=== PATIENT | female | born 1955 | race Caucasian/White ===

== ENCOUNTER 2023-07-06 16:07 | Emergency (ER) | payer MEDICARE, OTHER, SELFPAY ==
[2023-07-06 16:11] VITALS: BP 155/97; BMI 18.3
[2023-07-06 16:21] LABS: % Basophils 0.2 % (0-2); % Eosinophils 1.1 % (0-6); % Immature Granulocytes 0.3 % (0-0.5); % Lymphocytes 19.8 % (20.5-51.1); % Monocytes 9.3 % (1.7-9.3); % Neutrophils 69.3 % (42.2-75.2); Absolute Eosinophils 0.1 10^3/uL (0-0.7); Absolute Lymphocytes 1.3 10^3/uL (1.2-3.4); Absolute Monocytes 0.6 10^3/uL (0.1-0.6); Absolute Neutrophils 4.4 10^3/uL (1.4-6.5); Hematocrit 36.6 % (37.0-47.0); Hemoglobin 12.7 g/dL (12.0-16.0); Mean Corp Hgb Conc. 34.7 g/dL (33.0-37.0); Mean Corpuscular Hgb 29.1 pg (27.0-31.0); Mean Corpuscular Volume 83.8 fL (81.0-99.0); Mean Platelet Volume 8.4 fL (7.4-10.4); Nucleated Red Blood Cells % 0 %; Platelet Count 366 10^3/uL (130-400); Red Blood Cell Count 4.37 10^6/uL (4.20-5.40); White Blood Cell Count 6.4 10^3/uL (4.8-10.8)
[2023-07-06 16:43] LABS: ALT (SGPT) 20 U/L (0-35); AST (SGOT) 28 U/L (14-36); Albumin 4.5 g/dl (3.5-5.0); Alkaline Phosphatase 74 U/L (38-126); Blood Urea Nitrogen 10 mg/dl (7-17); Calcium 9.4 mg/dl (8.4-10.2); Carbon Dioxide 26 mmol/L (22-30); Chloride 95 mmol/L (98-107); Estimated Creatinine Clearance 68 ml/min; Glucose 104 mg/dl (70-99); Lipase 51 U/L (23-300); Potassium 4.2 mmol/L (3.5-5.1); Sodium 127 mmol/L (135-145); Total Bilirubin 0.3 mg/dl (0.2-1.3); Total Protein 7.3 g/dl (6.3-8.2); eGFR > 60.00
--- NOTE | 2023-07-06 17:24 | ED.GENMED ---
History of Present Illness
General
Chief Complaint: Abdominal Pain
Source: patient
Time Seen by Provider: 07/06/23 16:49
Travel History
Have you had any contact with someone who has COVID-19?: No
Do you have any symptoms of coronavirus? Fever > 100 degrees, chills, cough, shortness of breath, sore throat, loss of taste or smell, muscle aches, or headache?: No
History of Present Illness
History of Present Illness:
67-year-old female history of migraines, Tourette's presenting with diffuse abdominal pain starting 4 hours prior to arrival. Patient denies nausea, vomiting, diarrhea, back pain, or urinary symptoms. Patient states is never happened before.
Patient states his symptoms have resolved since onset and denies any current abdominal pain. Patient states that she had a normal bowel movement this morning and has passed gas since onset of pain. No history of any abdominal surgeries.
Past History
Past History
ED Past Medical History: Hypercholesterolemia, Psychiatric and Other (Migraine, Tourette's, dystonia, chronic pain)
Social History
Tobacco: Former smoker
Alcohol: None
Personal:
Phy Exam
Physical Exam
Physical Exam:
General: Alert, no acute distress, well appearing
Head: NCAT
Eyes: clear conjunctiva
Neck: supple
Cardiac: regular rate and rhythm, no murmur
Lungs: clear to auscultation bilaterally. No wheezes, rales, or rhonchi. Speaking full unlabored sentences. No respiratory distress.
Abdomen: soft, nondistended nontender. No rebound or guarding. No CVA tenderness bilaterally
MSK: no lower extremity edema bilaterally. No deformity
Skin: warm, dry
Neuro: Alert and oriented x3. no focal deficits
Course
Orders/Labs/Results
Orders:
Orders
07/06/23 16:15
Complete Blood Count/With Diff Urgent
Comprehensive Metabolic Panel Urgent
Lipase Urgent
Abnormal Lab Results
07/06/23
16:15
Hct 36.6 L %
(37.0-47.0)
Lymphocytes % 19.8 L %
(20.5-51.1)
Sodium 127 L mmol/L
(135-145)
Chloride 95 L mmol/L
(98-107)
Glucose 104 H mg/dl
(70-99)
07/06/23 16:15
07/06/23 16:15
Vital Signs
Initial and Last Documented VS:
Initial Vital Signs
Temp Pulse Resp BP Pulse Ox
98.1 F 78 18 155/97 97
07/06/23 16:11 07/06/23 16:11 07/06/23 16:11 07/06/23 16:11 07/06/23 16:11
Last Documented Vital Signs
Temp Pulse Resp BP Pulse Ox
98.1 F 78 18 155/97 97
07/06/23 16:11 07/06/23 16:11 07/06/23 16:11 07/06/23 16:11 07/06/23 16:11
Comment
Comment:
Patient presents to the Emergency Department with ____diffuse abdominal pain
Number and Complexity of Problems Addressed at the Encounter
� Chronic conditions affecting care:
� Acute Exacerbation and/or Progression of Chronic Illness:
� Differential Diagnosis includes: Gas, pancreatitis, IBS, GERD
Amount and/or Complexity of Data to be Reviewed and Analyzed
� I performed an independent evaluation of and my interpretation is:
EKG:
CT:
Xrays:
Laboratory Studies: Sodium 127 (chronic hyponatremia 126-130), LFTs/electrolytes/lipase within normal notes. WBC 6.4 with no left shift.
Other:
� Review of other/old records reveals:
� Clinical information was obtained by an independent historian:
� Prescriptions/Medications Considered but not given:
� Further testing considered but not performed: CT abdomen pelvis considered, but given resolution of symptoms with benign exam, decided against obtaining
Risk of Complications and/or Morbidity or Mortality of Patient Management
� Social Determinants of health affecting care:
� Discussion with other providers (PCP, Hospitalists, Consultants, etc):
� Escalation of care including admission/observation vs risk of discharge considered: 67-year-old female presenting with diffuse abdominal pain for the past 4 hours which is since resolved. Benign exam. Vitals within normal limits. Labs within
normal limits. Given no tenderness and no pain at current time, no indication for further imaging. Will discharge with PCP follow-up
*Critical Care Note
Total Time (30-74mins, 75-104mins- exclusive of procedures): Not Applicable
ED Attending Note
-
Portions of this chart may have been created with voice recognition software.� Occasional wrong word or��sound alike� substitutions may have occurred due to the inherent limitations of voice recognition software.
Discharge Plan
Departure
Patient Disposition: Home (Routine Discharge)
Date of Disposition: 07/06/23
Time of Disposition: 17:27
Patient with high blood pressure during this ER visit?: Yes
Discharge Problem:
Abdominal pain
Instructions: Abdominal Pain
Prescriptions:
No Action
clonazepam 0.5 MG tablet
0.5 mg PO BID
omeprazole 20 MG capsule,delayed release(DR/EC)
20 mg PO BID
atorvastatin 10 MG tablet
10 mg PO DAILY
docusate sodium 50 MG capsule
50 mg PO HS
Referrals:
Justen Emanuel DO [Family Provider] -
Activity Restrictions/Additional Instructions:
Follow-up with primary care doctor in 1 to 2 days.
If symptoms return, try Gas-X
Return to the emergency department for nausea, vomiting, diarrhea, urinary symptoms or new/persistent
Interventions
Interventions:
*Risk Screen - Suicide Last Done: 07/06/23 16:11
*General Assessment Last Done: 07/06/23 17:35
*Neglect/Abuse Screening Last Done: 07/06/23 16:11
ED- Fall Risk Assessment Last Done: 07/06/23 17:35
*ED COVID-19 Vaccine History Last Done: 07/06/23 16:11
*Nursing Disposition Last Done: 07/06/23 17:35
AZ-Rzbdam-Xsnwilnher Assessment Last Done: 07/06/23 17:10
Discharge Date and Time
Discharge Date/Time: 07/06/23 17:36
Print Language: MACANESE
== END 2023-07-06 17:36 | disposition home or self-care (01) ==
LOC: EMR 16:07
PROVIDERS: Emergency Medicine; EMERGENCY PHYSICIAN Emergency Medicine; FAMILY PHYSICIAN Family Medicine
DX: R10.84 Generalized abdominal pain (principal); E78.00 Pure hypercholesterolemia, unspecified; F95.2 Tourette's disorder; G89.29 Other chronic pain; Z87.891 Personal history of nicotine dependence
CPT/HCPCS: 99283; 80053; 83690; 85025

== ENCOUNTER 2023-09-04 15:03 | Emergency (ER) | payer MEDICARE, OTHER, SELFPAY ==
[2023-09-04 15:08] VITALS: BP 133/89; BMI 18.3
--- NOTE | 2023-09-04 16:14 | ED.GENMED ---
History of Present Illness
General
Chief Complaint: Extremity Pain (non-traumatic)
Source: patient
Exam Limitations: none
Time Seen by Provider: 09/04/23 15:28
Nursing documentation reviewed up to this point in time: agreed with
Travel History
Have you had any contact with someone who has COVID-19?: No
Do you have any symptoms of coronavirus? Fever > 100 degrees, chills, cough, shortness of breath, sore throat, loss of taste or smell, muscle aches, or headache?: No
History of Present Illness
History of Present Illness:
67 y/o F with h/o HLD, anemia, tourettes syndrome
here with left foot, ankle and kne pain after she dropped a board on her foot when she was wearing slides on her feet
she was at a store and the boards were stacked up and one fell on her foot
she has pain and a little swelling to top of her hfoot
she has iced off and on
she also has a little pain in her ankle and knee
she has been able to weight bear
Past History
Past History
ED Past Medical History: Hypercholesterolemia, Psychiatric and Other (Migraine, Tourette's, dystonia, chronic pain)
Social History
Tobacco: Former smoker
Alcohol: None
Personal:
Review of Systems
Review of Systems
Allergies reviewed?: Yes
All Other Systems: Not applicable
Phy Exam
Physical Exam
Physical Exam:
GENERAL: Alert , in no apparent distress
HEAD: NCAT
pt has some dyskinesia movements
NEUROLOGICAL: Alert and oriented, no focal neuro deficits, CN intact, 5/5 strength, sensation intact
SKIN: Warm and dry, very subtle bruising to top of left foot
minimal if any STS midfoot dorsum
minial tenderness to food
MUSCULOSKELETAL: foot miinimally tender as above
no ankle tendenress
full rom
ambulatory with subtle limp
knee full ROM, no bruising, no edema/swelling, nontender
PSYCH: Normal and appropriate interaction.
Course
Orders/Labs/Results
Orders:
Orders
09/04/23 15:11
Ankle, left 3 view CR [CR Ankle - Left Min 3 Views ] Urgent
Comment:
Reason For Exam: pain
CR Foot - Left Min 3 Views Urgent
Comment:
Reason For Exam: pain
CR Knee - Left 4 Or More View* Urgent
Comment:
Reason For Exam: pain
Vital Signs
Initial and Last Documented VS:
Initial Vital Signs
Temp Pulse Resp BP Pulse Ox
99.1 F 78 16 133/89 99
09/04/23 15:08 09/04/23 15:08 09/04/23 15:08 09/04/23 15:08 09/04/23 15:08
Last Documented Vital Signs
Temp Pulse Resp BP Pulse Ox
99.1 F 82 18 126/66 97
09/04/23 15:08 09/04/23 16:45 09/04/23 16:45 09/04/23 16:45 09/04/23 16:45
MDM/Problems Addressed
Differential Diagnosis Includes:
contusion, fracture
MDM/Problems Addressed:
67-year-old female with left foot pain and left knee pain after a wooden board fell on her foot yesterday at a store. She is able to weight-bear. There is minimal skin bruising and very minimal swelling if any, the x-ray was independently reviewed
by me and negative for fracture. Patient is able to weight-bear. Her knee is also having some pain however this was not injured during this episode yesterday. She does have some chronic knee pain. Patient has no knee effusion and full range of
motion and negative x-rays. RICE, Tylenol
*Critical Care Note
Total Time (30-74mins, 75-104mins- exclusive of procedures): Not Applicable
ED Attending Note
-
Portions of this chart may have been created with voice recognition software.� Occasional wrong word or��sound alike� substitutions may have occurred due to the inherent limitations of voice recognition software.
Discharge Plan
Departure
Patient Disposition: Home (Routine Discharge)
Date of Disposition: 09/04/23
Time of Disposition: 16:44
Patient with high blood pressure during this ER visit?: No
Condition: Fair
Covid-19: Not Applicable
Discharge Problem:
Contusion of foot, left
Instructions: Minor Contusion ED
Prescriptions:
No Action
clonazepam 0.5 MG tablet
0.5 mg PO BID
omeprazole 20 MG capsule,delayed release(DR/EC)
20 mg PO BID
atorvastatin 10 MG tablet
10 mg PO DAILY
docusate sodium 50 MG capsule
50 mg PO HS
Referrals:
Justen Emanuel, DO [Family Provider] -
Activity Restrictions/Additional Instructions:
you can use the Wilfrido wrap during the day, take it off at night as needed for your foot. There is no signs of fractures on your x-rays. Ice off-and-on, take Tylenol as needed for pain. Follow-up with the orthopedist if you are continuing to have
pain in the next week or so.
Interventions
Interventions:
*Risk Screen - Suicide Last Done: 09/04/23 15:08
*General Assessment Last Done: 09/04/23 16:45
*Neglect/Abuse Screening Last Done: 09/04/23 15:08
ED- Fall Risk Assessment Last Done: 09/04/23 15:08
*ED COVID-19 Vaccine History Last Done: 09/04/23 16:45
*Nursing Disposition Last Done: 09/04/23 16:45
ED-Skin Assessment Last Done: 09/04/23 16:45
ED-Peripheral Vascular Assessment Last Done: 09/04/23 16:45
ED-Musculoskeletal Assessment Last Done: 09/04/23 16:45
Discharge Date and Time
Discharge Date/Time: 09/04/23 16:45
Print Language: THAI
[2023-09-04 16:45] VITALS: BP 126/66
== END 2023-09-04 16:45 | disposition home or self-care (01) ==
LOC: EMR 15:03
PROVIDERS: EMERGENCY PHYSICIAN Emergency Medicine; FAMILY PHYSICIAN Family Medicine
DX: S90.32XA Contusion of left foot, initial encounter (principal); W22.8XXA Striking against or struck by other objects, initial encounter; E78.00 Pure hypercholesterolemia, unspecified; D64.9 Anemia, unspecified; F95.2 Tourette's disorder; G89.29 Other chronic pain; Z87.891 Personal history of nicotine dependence
CPT/HCPCS: 99283; 73564; 73610; 73630

== ENCOUNTER → 2024-02-23 09:35 | Outpatient (REF) | payer MEDICARE, OTHER, SELFPAY ==
[2024-02-23 10:27] LABS: % Basophils 0.4 % (0-2); % Eosinophils 2.6 % (0-6); % Immature Granulocytes 0.2 % (0-0.5); % Lymphocytes 30.4 % (20.5-51.1); % Monocytes 10.7 % (1.7-9.3); % Neutrophils 55.7 % (42.2-75.2); Absolute Eosinophils 0.1 10^3/uL (0-0.7); Absolute Lymphocytes 1.4 10^3/uL (1.2-3.4); Absolute Monocytes 0.5 10^3/uL (0.1-0.6); Absolute Neutrophils 2.5 10^3/uL (1.4-6.5); Hematocrit 40.4 % (37.0-47.0); Hemoglobin 13.5 g/dL (12.0-16.0); Mean Corp Hgb Conc. 33.4 g/dL (33.0-37.0); Mean Corpuscular Hgb 29.3 pg (27.0-31.0); Mean Corpuscular Volume 87.6 fL (81.0-99.0); Mean Platelet Volume 8.9 fL (7.4-10.4); Nucleated Red Blood Cells % 0 %; Platelet Count 443 10^3/uL (130-400); Red Blood Cell Count 4.61 10^6/uL (4.20-5.40); Red Cell Dist. Width 13.3 % (11.5-14.5); White Blood Cell Count 4.6 10^3/uL (4.8-10.8)
[2024-02-23 10:37] LABS: ALT (SGPT) 22 U/L (0-35); AST (SGOT) 29 U/L (14-36); Albumin 4.7 g/dl (3.5-5.0); Alkaline Phosphatase 71 U/L (38-126); Blood Urea Nitrogen 13 mg/dl (7-17); Calcium 9.5 mg/dl (8.4-10.2); Carbon Dioxide 29 mmol/L (22-30); Chloride 96 mmol/L (98-107); Glucose 83 mg/dl (70-99); HDL Cholesterol 104 mg/dl; LDL Cholesterol, Calculated 174 mg/dl; Potassium 4.7 mmol/L (3.5-5.1); Sodium 137 mmol/L (135-145); Total Bilirubin 0.5 mg/dl (0.2-1.3); Total Cholesterol 292 mg/dl (50-199); Total Protein 7.5 g/dl (6.3-8.2); Triglyceride 70 mg/dl (10-149); Very Low Density Lipoprotein 14 mg/dl (0-30); eGFR > 60.00
[2024-02-23 11:06] LABS: TSH 1.33 uIU/ml (0.47-4.68)
== END ==
LOC: REG 09:35
PROVIDERS: ATTENDING PHYSICIAN Family Medicine
DX: I10 Essential (primary) hypertension (principal); E78.5 Hyperlipidemia, unspecified; R53.83 Other fatigue; E03.9 Hypothyroidism, unspecified
CPT/HCPCS: 36415; 80053; 80061; 84443; 85025

== ENCOUNTER → 2025-02-25 10:17 | Outpatient (REF) | payer MEDICARE, OTHER, SELFPAY ==
[2025-02-25 12:13] LABS: ALT (SGPT) 19 U/L (0-35); AST (SGOT) 25 U/L (14-36); HDL Cholesterol 101 mg/dl; LDL Cholesterol, Calculated 196 mg/dl; Very Low Density Lipoprotein 20 mg/dl (0-30)
== END ==
LOC: REG 10:17
PROVIDERS: ATTENDING PHYSICIAN Internal Medicine Cardiovascular Disease; FAMILY PHYSICIAN Family Medicine
DX: E78.49 Other hyperlipidemia (principal)
CPT/HCPCS: 36415; 80061; 84450; 84460

== ENCOUNTER → 2025-04-02 11:05 | Outpatient (REF) | payer MEDICARE, OTHER, SELFPAY | LOC: HWWDC 11:05 | PROVIDERS: ATTENDING PHYSICIAN Obstetrics & Gynecology Gynecology; FAMILY PHYSICIAN Internal Medicine Geriatric Medicine | DX: Z12.31 Encounter for screening mammogram for malignant neoplasm of breast (principal) | CPT/HCPCS: 77063; 77067 ==